=== PATIENT | female | born 1955 | race Caucasian/White ===

== ENCOUNTER 2019-04-05 19:35 | Observation (INO) ==
--- NOTE | 2019-04-05 20:12 | Emergency Department Note ---
Disposition Clinical Impression: Delirium Altered mental status Qualifiers: Altered mental status type: delirium Qualified Code(s): R41.0 - Disorientation, unspecified Disposition: Admitted As Inpatient Condition: Undetermined Referrals: NONE,PCP [Primary Care Provider] - Forms: ED Satisfaction Letter Time of Disposition: 22:16 Altered Mental Status HPI - General Chief Complaint: ED Altered Mental Status Stated Complaint: ams daughter thinks medication related Time Seen by Provider: 04/05/19 19:54 Source: patient, family Mode of arrival: wheelchair Limitations: no limitations Nursing Notes Reviewed: Yes Vital Signs Reviewed: Yes - History of Present Illness HPI Narrative: 64 year old female on multiple medications to the emergency department com plaining of alteration in mentation from family. Patient has been unable to care for self of multiple falls. No new medications which the patient is taking at least 6 Xanax per day and mixing with alcohol. The patient is speaking in flight of ideas and in circles. The patient is perseverating on subjects. Patient denies any atraumatic injury on a fall where she struck her left knee and left lower extremity 1 day ago. Patient is alert to person and place but is able able to really provide any history based on is currently occurring given the inability to give a straight answer. - Related Data Home Medications Medication Instructions Recorded Confirmed Ambien 10/29/17 Lopressor 10/29/17 Prozac 10/29/17 Previous Rx's Medication Instructions Recorded RX: Diclofenac Sodium [Voltaren] 50 mg PO BID #30 tablet. 10/29/17 Allergies Allergy/AdvReac Type Severity Reaction Status Date / Time codeine Allergy Rash Verified 10/29/17 15:09 All systems ED: reviewed and negative except as stated. Constitutional: Denies: fever, chills, weakness ENT ED: Denies: dysphagia Cardiovascular: Denies: chest pain Respiratory: Denies: dyspnea Gastrointestinal: Denies: abdominal pain Genitourinary: Denies: urgency, dysuria Musculoskeletal: Denies: back pain Integumentary: Denies: rash Neurological: Reports: confusion. Denies: headache Psychiatric: Denies: anxiety Past Medical History - Past Medical History Attestation: Yes The following information was validated with the patient. Source: patient, old records reviewed, obtained from family Medical history: Reports: hypertension, other Surgical history: Reports: non-contributory Psychiatric history: Reports: anxiety, depression - Social History Smoking Status: Current every day smoker Smokeless Tobacco Status: No Alcohol use: Reports: heavy, recent Drug use: Reports: none Physical Exam - General Limitations: altered mental status General appearance: alert, in no apparent distress - Head Head exam: atraumatic, normocephalic, normal inspection - Eye Eye exam: Present: normal appearance, PERRL, EOMI - ENT ENT exam: normal exam, normal oropharynx, mucous membranes moist - Neck Neck exam: Present: normal inspection, full ROM, trachea midline - Chest Chest inspection: Present: normal inspection, symmetric chest wall rise - Respiratory Respiratory exam: Present: normal lung sounds bilaterally - Cardiovascular Cardiovascular exam: Present: normal rhythm, tachycardia, normal heart sounds - Abdominal Exam Abdominal exam: Present: soft, Non-Tender. Absent: tenderness, distention, guarding, rebound, rigidity - Extremities Exam Extremities exam: Present: normal inspection, full ROM, normal capillary refill. Absent: tenderness, pedal edema - Neurological Exam Neurological exam: Present: alert - Expanded Neurological Exam Patient oriented to: Present: person, place Speech: Present: fluid speech Coma Scale Eye Opening: Spontaneous Coma Scale Motor Response: Obeys Commands Coma Scale Verbal Response: Confused Coma Scale Total: 14 - Psychiatric Psychiatric exam: Present: manic - Skin Skin exam: Present: warm, dry, intact, normal color Course - Reevaluation(s) Reevaluation #1: Daughter states she has taken 25 tablets of xanax in 3 days. Time: 20:24 Vital Signs Temperature 97.9 F 04/05/19 19:44 Pulse Rate 122 04/05/19 19:44 Respiratory Rate 16 04/05/19 19:44 Blood Pressure 138/84 04/05/19 19:44 O2 Sat by Pulse Oximetry 90 04/05/19 19:44 Temperature 97.9 F 04/05/19 19:44 Pulse Rate 122 04/05/19 19:44 Respiratory Rate 16 04/05/19 19:44 Blood Pressure 138/84 04/05/19 19:44 O2 Sat by Pulse Oximetry 90 04/05/19 19:44 Oxygen Delivery Oxygen Delivery Room Air Altered Mental Status - MDM Narrative Medical decision making narrative: Patient's workup in the emergency department demonstrates no acute process to account for patient's symptoms. Given the patient's extensive quantity of benzodiazepines that the patient is received a feel as though the patient's symptoms are likely polypharmacy. Patient is on Ambien, trachea alcohol and taking Xanax. The patient is lucid and answering questions but again is very hard-pressed to give history answer. The patient will be admitted to the hospital at this time for further workup and observation. Family made aware and agrees to plan. No further questions or concerns noted. Accepted by Dr. San. - Lab Data Lab results reviewed: Yes I reviewed the patient's lab results. Result diagrams: 04/05/19 20:25 04/05/19 20:25 Lab Results 04/05/19 04/05/19 04/05/19 Range/Units 20:25 20:25 20:25 WBC 8.6 (4.3-11.1) K/mcL RBC 6.03 H (3.82-4.97) M/mcL Hgb 17.7 H (11.5-15.4) g/dL Hct 52.8 H (35.3-44.9) % MCV 87.6 (83.0-100.0) fL MCH 29.4 (28.0-33.3) pg MCHC 33.5 (31.6-35.5) g/dL RDW 16.3 H (11.5-14.5) % Plt Count 384 (140-400) K/mcL MPV 9.6 (9.4-12.4) fL Immature Gran % 0.5 (0-4) % Seg Neutrophils % 61.5 % Lymphocytes % 26.8 % Monocytes % 9.9 % Eosinophils % 0.7 % Basophils % 0.6 % Neutrophils # 5.3 (1.6-8.9) K/mcL Lymphocytes # 2.3 (0.6-4.6) K/mcL Monocytes # 0.9 (0.0-1.3) K/mcL Eosinophils # 0.1 (0.0-0.6) K/mcL Basophils # 0.1 (0.0-0.2) K/mcL PT 11.3 (9.4-12.1) Seconds INR 1.0 APTT 37.7 H (26.0-36.0) Seconds Sodium 140 (136-145) mEq/L Potassium 3.3 L (3.5-5.1) mEq/L Chloride 101 (98-107) mEq/L Carbon Dioxide 30 H (23-29) mEq/L BUN 11 (8-23) mg/dL Creatinine 0.70 (0.60-1.20) mg/dL Est GFR ( Amer) > 60 (> 60) Est GFR (Non-Af Amer) > 60 (> 60) BUN/Creatinine Ratio 16 (6-26) Glucose 105 (70-105) mg/dL Calculated Osmolality 290 (280-300) Calcium 9.9 (8.6-10.3) mg/dL Total Bilirubin 0.4 (0.3-1.0) mg/dL Direct Bilirubin 0.2 (0.0-0.2) mg/dL Indirect Bilirubin 0.2 (0.0-1.2) mg/dL AST 14 (13-39) Units/L ALT 8 (7-52) Units/L Alkaline Phosphatase 84 (34-104) Units/L Ammonia (16-53) mcmol/L Troponin I < 0.03 (< 0.04) ng/mL Serum Total Protein 6.8 (6.4-8.9) g/dL Albumin 4.6 (3.5-5.7) g/dL Globulin 2.2 L (2.4-3.5) g/dL Albumin/Globulin Ratio 2.1 (1.1-2.2) Lipase 31 (11-82) Units/L Urine Color (Yellow) Urine Clarity (Clear) Urine pH (5.0-8.0) pH Units Ur Specific [place] (1.010-1.025) Urine Protein (Neg-Trace) mg/dL Urine Glucose (UA) (Normal) mg/dL Urine Ketones (Negative) mg/dL Urine Blood (Negative) Urine Nitrite (Negative) Urine Bilirubin (Negative) Urine Urobilinogen (Normal) mg/dL Ur Leukocyte Esterase (Negative) Ur Culture Indicated? (NO) Salicylates < 2.5 L (15.0-30.0) mg/dL Acetaminophen < 10 L (10-20) mcg/mL Ur Drug Screen Interp Ethyl Alcohol < 10 (Less than 10) mg/dL 04/05/19 04/05/19 04/05/19 Range/Units 20:25 21:38 21:38 WBC (4.3-11.1) K/mcL RBC (3.82-4.97) M/mcL Hgb (11.5-15.4) g/dL Hct (35.3-44.9) % MCV (83.0-100.0) fL MCH (28.0-33.3) pg MCHC (31.6-35.5) g/dL RDW (11.5-14.5) % Plt Count (140-400) K/mcL MPV (9.4-12.4) fL Immature Gran % (0-4) % Seg Neutrophils % % Lymphocytes % % Monocytes % % Eosinophils % % Basophils % % Neutrophils # (1.6-8.9) K/mcL Lymphocytes # (0.6-4.6) K/mcL Monocytes # (0.0-1.3) K/mcL Eosinophils # (0.0-0.6) K/mcL Basophils # (0.0-0.2) K/mcL PT (9.4-12.1) Seconds INR APTT (26.0-36.0) Seconds Sodium (136-145) mEq/L Potassium (3.5-5.1) mEq/L Chloride (98-107) mEq/L Carbon Dioxide (23-29) mEq/L BUN (8-23) mg/dL Creatinine (0.60-1.20) mg/dL Est GFR ( Amer) (> 60) Est GFR (Non-Af Amer) (> 60) BUN/Creatinine Ratio (6-26) Glucose (70-105) mg/dL Calculated Osmolality (280-300) Calcium (8.6-10.3) mg/dL Total Bilirubin (0.3-1.0) mg/dL Direct Bilirubin (0.0-0.2) mg/dL Indirect Bilirubin (0.0-1.2) mg/dL AST (13-39) Units/L ALT (7-52) Units/L Alkaline Phosphatase (34-104) Units/L Ammonia 34 (16-53) mcmol/L Troponin I (< 0.04) ng/mL Serum Total Protein (6.4-8.9) g/dL Albumin (3.5-5.7) g/dL Globulin (2.4-3.5) g/dL Albumin/Globulin Ratio (1.1-2.2) Lipase (11-82) Units/L Urine Color Yellow (Yellow) Urine Clarity Clear (Clear) Urine pH 5.5 (5.0-8.0) pH Units Ur Specific [place] 1.014 (1.010-1.025) Urine Protein Negative (Neg-Trace) mg/dL Urine Glucose (UA) Normal (Normal) mg/dL Urine Ketones Negative (Negative) mg/dL Urine Blood Negative (Negative) Urine Nitrite Negative (Negative) Urine Bilirubin Small H (Negative) Urine Urobilinogen Normal (Normal) mg/dL Ur Leukocyte Esterase Negative (Negative) Ur Culture Indicated? NO (NO) Salicylates (15.0-30.0) mg/dL Acetaminophen (10-20) mcg/mL Ur Drug Screen Interp See Below Ethyl Alcohol (Less than 10) mg/dL - Radiology Data Radiology results reviewed: Yes I reviewed the patient's radiology results. Chest X-Ray 04/05/19 20:06 IMPRESSION: No acute cardiopulmonary findings. Hyperinflated lungs suggest obstructive small airways disease such as asthma or COPD. D/ / Vamshi Almeida / Vamshi Almeida Interpreting Provider: Vamshi Almeida Head CT 04/05/19 20:06 IMPRESSION: No acute intracranial abnormality. D/ / Kevin Lock MD / Kevin Lock MD Interpreting Provider: Kevin Lock MD - EKG Data EKG attestation: Yes I reviewed and interpreted this EKG. EKG results narrative: Heart rate 102 beats for minute. Sinus tachycardia. No ST elevation or ST depression noted. Inverted T waves noted in V1, V2, V3, V4. No other acute changes noted. Large amount of artifact on EKG. TPA Checklist - LKW: 3-4.5 hrs Add. Warnings/Precautions Patient/family understanding: The patient/family members have been counseled and understood the risk, benefit, and alternatives of treatment.
--- NOTE | 2019-04-05 20:17 | Emergency Department Note ---
Disposition Clinical Impression: Delirium Altered mental status Qualifiers: Altered mental status type: delirium Qualified Code(s): R41.0 - Disorientation, unspecified Disposition: Admitted As Inpatient Condition: Undetermined Referrals: NONE,PCP [Primary Care Provider] - Forms: ED Satisfaction Letter Time of Disposition: 22:03 General Adult HPI - General Chief complaint: ED Altered Mental Status Stated complaint: ams daughter thinks medication related Time Seen by Provider: 04/05/19 19:54 Source: patient, family Mode of arrival: wheelchair Limitations: altered mental status - History of Present Illness Pain Scale: 0 - Related Data Home Medications Medication Instructions Recorded Confirmed Ambien 10/29/17 Lopressor 10/29/17 Prozac 10/29/17 Previous Rx's Medication Instructions Recorded Diclofenac Sodium [Voltaren] 50 mg PO BID #30 tablet. 10/29/17 Allergies Allergy/AdvReac Type Severity Reaction Status Date / Time codeine Allergy Rash Verified 10/29/17 15:09 Constitutional: Denies: fever, chills, weakness ENT ED: Denies: dysphagia Cardiovascular: Denies: chest pain Respiratory: Denies: dyspnea Gastrointestinal: Denies: abdominal pain Genitourinary: Denies: urgency, dysuria Musculoskeletal: Denies: back pain Integumentary: Denies: rash Neurological: Reports: confusion. Denies: headache Psychiatric: Denies: anxiety Past Medical History - Past Medical History Medical history: Reports: hypertension, other Surgical history: Reports: non-contributory Psychiatric history: Reports: anxiety, depression - Social History Smoking Status: Current every day smoker Smokeless Tobacco Status: No Alcohol use: Reports: heavy, recent Drug use: Reports: none Physical Exam - General Limitations: altered mental status General appearance: alert, in no apparent distress Course Vital Signs Temperature 97.9 F 04/05/19 19:44 Pulse Rate 122 04/05/19 19:44 Respiratory Rate 16 04/05/19 19:44 Blood Pressure 138/84 04/05/19 19:44 O2 Sat by Pulse Oximetry 90 04/05/19 19:44 Temperature 97.9 F 04/05/19 19:44 Pulse Rate 122 04/05/19 19:44 Respiratory Rate 16 04/05/19 19:44 Blood Pressure 138/84 04/05/19 19:44 O2 Sat by Pulse Oximetry 90 04/05/19 19:44 Oxygen Delivery Oxygen Delivery Room Air Medical Decision Making - Lab Data Result diagrams: 04/05/19 20:25 04/05/19 20:25 Lab Results 04/05/19 04/05/19 04/05/19 Range/Units 20:25 20:25 20:25 WBC 8.6 (4.3-11.1) K/mcL RBC 6.03 H (3.82-4.97) M/mcL Hgb 17.7 H (11.5-15.4) g/dL Hct 52.8 H (35.3-44.9) % MCV 87.6 (83.0-100.0) fL MCH 29.4 (28.0-33.3) pg MCHC 33.5 (31.6-35.5) g/dL RDW 16.3 H (11.5-14.5) % Plt Count 384 (140-400) K/mcL MPV 9.6 (9.4-12.4) fL Immature Gran % 0.5 (0-4) % Seg Neutrophils % 61.5 % Lymphocytes % 26.8 % Monocytes % 9.9 % Eosinophils % 0.7 % Basophils % 0.6 % Neutrophils # 5.3 (1.6-8.9) K/mcL Lymphocytes # 2.3 (0.6-4.6) K/mcL Monocytes # 0.9 (0.0-1.3) K/mcL Eosinophils # 0.1 (0.0-0.6) K/mcL Basophils # 0.1 (0.0-0.2) K/mcL PT 11.3 (9.4-12.1) Seconds INR 1.0 APTT 37.7 H (26.0-36.0) Seconds Sodium 140 (136-145) mEq/L Potassium 3.3 L (3.5-5.1) mEq/L Chloride 101 (98-107) mEq/L Carbon Dioxide 30 H (23-29) mEq/L BUN 11 (8-23) mg/dL Creatinine 0.70 (0.60-1.20) mg/dL Est GFR ( Amer) > 60 (> 60) Est GFR (Non-Af Amer) > 60 (> 60) BUN/Creatinine Ratio 16 (6-26) Glucose 105 (70-105) mg/dL Calculated Osmolality 290 (280-300) Calcium 9.9 (8.6-10.3) mg/dL Total Bilirubin 0.4 (0.3-1.0) mg/dL Direct Bilirubin 0.2 (0.0-0.2) mg/dL Indirect Bilirubin 0.2 (0.0-1.2) mg/dL AST 14 (13-39) Units/L ALT 8 (7-52) Units/L Alkaline Phosphatase 84 (34-104) Units/L Ammonia (16-53) mcmol/L Troponin I < 0.03 (< 0.04) ng/mL Serum Total Protein 6.8 (6.4-8.9) g/dL Albumin 4.6 (3.5-5.7) g/dL Globulin 2.2 L (2.4-3.5) g/dL Albumin/Globulin Ratio 2.1 (1.1-2.2) Lipase 31 (11-82) Units/L Urine Color (Yellow) Urine Clarity (Clear) Urine pH (5.0-8.0) pH Units Ur Specific [place] (1.010-1.025) Urine Protein (Neg-Trace) mg/dL Urine Glucose (UA) (Normal) mg/dL Urine Ketones (Negative) mg/dL Urine Blood (Negative) Urine Nitrite (Negative) Urine Bilirubin (Negative) Urine Urobilinogen (Normal) mg/dL Ur Leukocyte Esterase (Negative) Ur Culture Indicated? (NO) Salicylates < 2.5 L (15.0-30.0) mg/dL Acetaminophen < 10 L (10-20) mcg/mL Ur Drug Screen Interp Ethyl Alcohol < 10 (Less than 10) mg/dL 04/05/19 04/05/19 04/05/19 Range/Units 20:25 21:38 21:38 WBC (4.3-11.1) K/mcL RBC (3.82-4.97) M/mcL Hgb (11.5-15.4) g/dL Hct (35.3-44.9) % MCV (83.0-100.0) fL MCH (28.0-33.3) pg MCHC (31.6-35.5) g/dL RDW (11.5-14.5) % Plt Count (140-400) K/mcL MPV (9.4-12.4) fL Immature Gran % (0-4) % Seg Neutrophils % % Lymphocytes % % Monocytes % % Eosinophils % % Basophils % % Neutrophils # (1.6-8.9) K/mcL Lymphocytes # (0.6-4.6) K/mcL Monocytes # (0.0-1.3) K/mcL Eosinophils # (0.0-0.6) K/mcL Basophils # (0.0-0.2) K/mcL PT (9.4-12.1) Seconds INR APTT (26.0-36.0) Seconds Sodium (136-145) mEq/L Potassium (3.5-5.1) mEq/L Chloride (98-107) mEq/L Carbon Dioxide (23-29) mEq/L BUN (8-23) mg/dL Creatinine (0.60-1.20) mg/dL Est GFR ( Amer) (> 60) Est GFR (Non-Af Amer) (> 60) BUN/Creatinine Ratio (6-26) Glucose (70-105) mg/dL Calculated Osmolality (280-300) Calcium (8.6-10.3) mg/dL Total Bilirubin (0.3-1.0) mg/dL Direct Bilirubin (0.0-0.2) mg/dL Indirect Bilirubin (0.0-1.2) mg/dL AST (13-39) Units/L ALT (7-52) Units/L Alkaline Phosphatase (34-104) Units/L Ammonia 34 (16-53) mcmol/L Troponin I (< 0.04) ng/mL Serum Total Protein (6.4-8.9) g/dL Albumin (3.5-5.7) g/dL Globulin (2.4-3.5) g/dL Albumin/Globulin Ratio (1.1-2.2) Lipase (11-82) Units/L Urine Color Yellow (Yellow) Urine Clarity Clear (Clear) Urine pH 5.5 (5.0-8.0) pH Units Ur Specific [place] 1.014 (1.010-1.025) Urine Protein Negative (Neg-Trace) mg/dL Urine Glucose (UA) Normal (Normal) mg/dL Urine Ketones Negative (Negative) mg/dL Urine Blood Negative (Negative) Urine Nitrite Negative (Negative) Urine Bilirubin Small H (Negative) Urine Urobilinogen Normal (Normal) mg/dL Ur Leukocyte Esterase Negative (Negative) Ur Culture Indicated? NO (NO) Salicylates (15.0-30.0) mg/dL Acetaminophen (10-20) mcg/mL Ur Drug Screen Interp See Below Ethyl Alcohol (Less than 10) mg/dL Attestation Statement - Attestation Attestation: I examined this patient and my medical decision-making was reviewed with the Resident Physician. I agree with the documented findings, disposition and treatment plan as described except to the extent set forth below. 64-year-old female presented to the emergency room for mental status. Patient is accompanied by family members including her daughter who states over the past 2 weeks patient has had increased confusion. She is not taking care of the house. She is not cleaning. Patient is been perseverating. Her stories are not making sense. She has pressured speech at times. She takes Ambien to help her sleep and they feel that she is mixing that with too much of her Xanax and/or Ativan medication. Her doctor writes with these medications. The family states she has been taking 78 tablets of her benzodiazepine a day and mixing it with alcohol. They are concerned that this is causing her to be more confused than normal. She has no underlying history of dementia. She has no underlying history of Alzheimer's. No history of CVAs. She has no history of coronary disease. Patient has no psychiatric diseases. At this time we need to rule out any intracranial abnormality as the cause of her change in behavior and mental status versus it being related to polysubstance issues mixed with alcohol. Patient will need to be admitted. This is her second visit in the ER in the past 24 hours. Patient was here last night for a fall that was reported from family. She had been sent home and returns this evening for increasing confusion. plan to check labs, CT, CXR, Urine.
[2019-04-05 20:39] LABS: Basophils # 0.1 K/mcL (0.0-0.2); Basophils % 0.6 %; Eosinophils # 0.1 K/mcL (0.0-0.6); Eosinophils % 0.7 %; Hematocrit 52.8 % (35.3-44.9); Hemoglobin 17.7 g/dL (11.5-15.4); Immature Granulocytes % 0.5 % (0-4); Lymphocytes # 2.3 K/mcL (0.6-4.6); Lymphocytes % 26.8 %; Mean Corpuscular HGB Conc 33.5 g/dL (31.6-35.5); Mean Corpuscular Hemoglobin 29.4 pg (28.0-33.3); Mean Corpuscular Volume 87.6 fL (83.0-100.0); Mean Platelet Volume 9.6 fL (9.4-12.4); Monocytes # 0.9 K/mcL (0.0-1.3); Monocytes % 9.9 %; Neutrophils # 5.3 K/mcL (1.6-8.9); Platelet Count 384 K/mcL (140-400); Red Blood Count 6.03 M/mcL (3.82-4.97); Red Cell Distribution Width 16.3 % (11.5-14.5); Segmented Neutrophils % 61.5 %
[2019-04-05 20:47] LABS: Prothrombin Time 11.3 Seconds (9.4-12.1)
[2019-04-05 20:49] LABS: Activated Partial Thrombo Time 37.7 Seconds (26.0-36.0)
[2019-04-05 21:02] LABS: Acetaminophen < 10 mcg/mL (10-20); Alanine Aminotransferase 8 Units/L (7-52); Albumin 4.6 g/dL (3.5-5.7); Albumin/Globulin Ratio 2.1 (1.1-2.2); Alkaline Phosphatase 84 Units/L (34-104); Aspartate Amino Transferase 14 Units/L (13-39); BUN/Creatinine Ratio 16 (6-26); Bilirubin,Direct 0.2 mg/dL (0.0-0.2); Bilirubin,Indirect 0.2 mg/dL (0.0-1.2); Bilirubin,Total 0.4 mg/dL (0.3-1.0); Blood Urea Nitrogen 11 mg/dL (8-23); Calcium 9.9 mg/dL (8.6-10.3); Carbon Dioxide 30 mEq/L (23-29); Chloride 101 mEq/L (98-107); Ethanol < 10 mg/dL (Less than 10); Globulin 2.2 g/dL (2.4-3.5); Glucose 105 mg/dL (70-105); Lipase 31 Units/L (11-82); Osmolality,Calculated 290 (280-300); Potassium 3.3 mEq/L (3.5-5.1); Salicylate < 2.5 mg/dL (15.0-30.0); Sodium 140 mEq/L (136-145); Total Protein 6.8 g/dL (6.4-8.9); Troponin I < 0.03 ng/mL (< 0.04); eGFR For Non-African Americans > 60 (> 60)
[2019-04-05 21:52] LABS: Bilirubin,Urine Small (Negative); Blood,Urine Negative (Negative); Clarity,Urine Clear (Clear); Color,Urine Yellow (Yellow); Glucose,Urine (UA) Normal (Normal); Ketones,Urine Negative (Negative); Leukocyte Esterase,Urine Negative (Negative); Nitrite,Urine Negative (Negative); PH,Urine 5.5 pH Units (5.0-8.0); Protein,Urine Negative (Neg-Trace); Specific Gravity,Urine 1.014 (1.010-1.025); Urobilinogen,Urine Normal (Normal)
[2019-04-05] MEDS ORDERED: 0.9 % Sodium Chloride 1,000 ML IVC ONE (22:02)
[2019-04-05] MEDS ORDERED: Naloxone 0.4 MG/ML INJ IVP PRN (22:35)
[2019-04-05 22:37] LABS: Amphetamine Screen,Urine Negative ng/mL (Cutoff=1000); Barbiturate Screen,Urine Negative ng/mL (Cutoff=200); Benzodiazepines Screen,Urine Positive ng/mL (Cutoff=200); Cannabinoid Screen,Urine Negative ng/mL (Cutoff = 50); Cocaine Screen,Urine Negative ng/mL (Cutoff= 300); Opiate Screen,Urine Negative ng/mL (Cutoff=300); Phencyclidine Screen,Urine Negative ng/mL (Cutoff=25)
[2019-04-06 02:36] LABS: Hematocrit 51.6 % (35.3-44.9); Hemoglobin 16.8 g/dL (11.5-15.4); Mean Corpuscular HGB Conc 32.6 g/dL (31.6-35.5); Mean Corpuscular Hemoglobin 29.4 pg (28.0-33.3); Mean Corpuscular Volume 90.2 fL (83.0-100.0); Platelet Count 335 K/mcL (140-400); Red Blood Count 5.72 M/mcL (3.82-4.97); Red Cell Distribution Width 17.1 % (11.5-14.5)
[2019-04-06 02:44] LABS: BUN/Creatinine Ratio 14 (6-26); Blood Urea Nitrogen 9 mg/dL (8-23); Calcium 9.1 mg/dL (8.6-10.3); Carbon Dioxide 29 mEq/L (23-29); Chloride 105 mEq/L (98-107); Glucose 79 mg/dL (70-105); Magnesium 2.2 mg/dL (1.6-2.6); Osmolality,Calculated 294 (280-300); Phosphorous 2.9 mg/dL (2.7-4.5); Potassium 3.3 mEq/L (3.5-5.1); Sodium 143 mEq/L (136-145); eGFR For Non-African Americans > 60 (> 60)
--- NOTE | 2019-04-06 02:52 | Internal Med History&Physical ---
Date of Encounter: 04/06/19 Time of Encounter: 01:00 Internal Medicine - H&P: HPI Chief complaint: AMS History of present illness: Ms. Franks is a 64 year old female with a past medical history of hypertension who was brought into the ED by family members due to concern for altered mental status. Patient has been unable to care for self and has had multiple falls. According to family and patient, the patient is taking at least 6 Xanax per day and mixing with alcohol. The patient is speaking in flight of ideas and in circles. On my assessment the patient was alert oriented 3 however was not able to provide me a concise history and would ramble on after each of my questions. Patient's daughter was at bedside who stated that the patient was having increased confusion and changes in behavior over the past 2 weeks. She does endorse depression for which she is receiving treatment on an outpatient basis. Client denies any history of inpatient treatment or suicide attempts. She did endorse tought of suicide occuring one evening severaldays prior stating that she had taken more of her Zolpidem that evening. Claims she takes Prozac, Neurontin, and Xanax at home. Home dose of Xanax is 4mg a day. Suspect she is taking more than this and drinking alcohol on top of it. Current delirium likely related to Benzo use. Her ability to give a good history is very limited at this point based on her level of confusion. She otherwise has no other significant metabolic derangements. Denies any fever, chills, nausea, vomiting, abdominal pain, chest pain, shortness of breath, cough or diarrhea. Past Med Surg Social Fam HX - Past Medical History Medical history: hypertension Psychiatric history: anxiety, depression - Past Surgical History Surgical History: knee replacement Additional surgical history: bowel resection - Social History Smoking Status: Current every day smoker Smokeless Tobacco Status: No Alcohol use: occasionally, recent Drug use: none Internal Medicine - H&P: Meds ALPRAZolam [Xanax 1 MG Tablet] 1 mg PO QID 04/05/19 [History] DiphenhydraMINE [Benadryl] 50 mg PO HS PRN 04/05/19 [History] Gabapentin [Neurontin] 300 mg PO TID 04/05/19 [History] Zolpidem [Ambien] 10 mg PO HS 04/05/19 [History] Cyclobenzaprine HCl 10 mg PO TID PRN 04/06/19 [History] Diclofenac Sodium 4 gm TP QID PRN 04/06/19 [History] FLUoxetine HCl [Prozac] 20 mg PO BID 04/06/19 [History] Fluticasone/Vilanterol [Breo Ellipta 200-25 Mcg INH] 1 puff IH DAILY 04/06/19 [History] Losartan/Hydrochlorothiazide [Losartan-Hctz 50-12.5 mg Tab] 1 tab PO DAILY 04/06/19 [History] Meloxicam 15 mg PO DAILY 04/06/19 [History] Omeprazole [PriLOSEC] 20 mg PO DAILY 04/06/19 [History] Potassium Chloride [K-Tab ER] 10 meq PO DAILY 04/06/19 [History] Tramadol HCl [Ultram] 50 - 100 mg PO Q8H PRN 04/06/19 [History] Allergy/AdvReac Type Severity Reaction Status Date / Time codeine AdvReac Gastrointestinal Verified 04/06/19 16:50 Upset morphine AdvReac Gastrointestinal Verified 04/06/19 16:50 Upset All Systems PM: A 10-system review of systems was performed and is negative for pertinent findings except as documented above in the HPI. - Constitutional Constitutional: no chills, no fever(s), no night sweats - EENT Eyes: no change in vision, no discharge, no pain, no photophobia Ears: no ear discharge, no ear pain, no tinnitus Nose, mouth and throat: no dysphagia, no nasal discharge, no neck pain, no sore throat - Cardiovascular Cardiovascular ROS IM: no chest pain, no diaphoresis, no dyspnea, no lightheadedness, no palpitations, no syncope - Respiratory Respiratory: no cough, no dyspnea, no wheezing, no excessive phlegm production - Gastrointestinal Gastrointestinal: no abdominal pain, no diarrhea, no hematemesis, no hematochez ia, no melena, no nausea, no vomiting - Genitourinary Genitourinary: no change in urinary stream, no dysuria, no flank pain, no hematuria - Musculoskeletal Musculoskeletal ROS IM: no numbness, no tingling - Integumentary Integumentary IM: no rash, no unusual bruising - Neurological Neurological ROS: no confusion, no convulsions, no focal weakness, no numbness, no tingling, no tremor(s) - Hematologic/Lymphatic Hematologic/Lymphatic: no easy bruising - Constitutional Vitals: Temp Pulse Resp BP Pulse Ox 98.4 F 93 17 148/95 97 04/06/19 00:06 04/06/19 00:06 04/06/19 00:06 04/06/19 00:06 04/06/19 00:06 Exam: General: Alert and oriented 3 Skin:Normal color, no rash, no lesions. HEENT:EOM, pupils equal, round and reactive. Cardiovascular:Normal S1 & S2, no rubs, murmurs or gallops. No JVD. Pulse regular. Lungs:Normal breath sounds, no wheezes or crackles. Abdomen:Soft, non-tender, no rigidity. Extremities:No deformity, no edema or tenderness, no joint swelling or clubbing. Neurological:Normal cognition; cranial nerves II through XII intact; no focal deficits; no pronator drift. Full strength 5 out of 5 in the upper and lower extremities Mental status: Patient does endorse thoughts of harming herself. No reports of suicidal attempt. Thought process tangential. Pulses:Carotid and radial pulses normal +2. Rest of the physical exam is non contributory Internal Med - H&P Results - Labs CBC & Chem 7: 04/06/19 01:31 04/06/19 01:31 Labs: Short CBC 04/05/19 04/06/19 Range/Units 20:25 01:31 WBC 8.6 8.5 (4.3-11.1) K/mcL Hgb 17.7 H 16.8 H (11.5-15.4) g/dL Hct 52.8 H 51.6 H (35.3-44.9) % Plt Count 384 335 (140-400) K/mcL Neutrophils # 5.3 (1.6-8.9) K/mcL BMP 04/05/19 04/06/19 20:25 01:31 Sodium 140 143 Potassium 3.3 L 3.3 L Chloride 101 105 Carbon Dioxide 30 H 29 BUN 11 9 Creatinine 0.70 0.63 Glucose 105 79 Calcium 9.9 9.1 Cardiac Enzymes 04/05/19 Range/Units 20:25 Troponin I < 0.03 (< 0.04) ng/mL Liver Function 04/05/19 Range/Units 20:25 Total Bilirubin 0.4 (0.3-1.0) mg/dL Direct Bilirubin 0.2 (0.0-0.2) mg/dL AST 14 (13-39) Units/L ALT 8 (7-52) Units/L Alkaline Phosphatase 84 (34-104) Units/L Albumin 4.6 (3.5-5.7) g/dL Urine 04/05/19 Range/Units 21:38 Urine Color Yellow (Yellow) Urine Clarity Clear (Clear) Urine pH 5.5 (5.0-8.0) pH Units Ur Specific [place] 1.014 (1.010-1.025) Urine Protein Negative (Neg-Trace) mg/dL Urine Glucose (UA) Normal (Normal) mg/dL - Impressions ITS Impressions Chest X-Ray 04/05/19 20:06 IMPRESSION: No acute cardiopulmonary findings. Hyperinflated lungs suggest obstructive small airways disease such as asthma or COPD. D/ / Vamshi Almeida / Vamshi Almeida Interpreting Provider: Vamshi Almeida Head CT 04/05/19 20:06 IMPRESSION: No acute intracranial abnormality. D/ / Kevin Lock MD / Kevin Lock MD Interpreting Provider: Kevin Lock MD - Assessment and Plan (1) Altered mental status Current Visit: Yes Status: Acute Assessment and plan: Altered mental status exhibited with tangential thought and perseveration. Patient endorses several stressors in her life and did expressed suicidal ideation stating that she had taken 3 Ambien tablets at some point. CT scan of the head was unremarkable. Symptoms likely secondary to medication toxicity and alcohol abuse. Likely underlying depression. -Supportive fluids. -Hold benzodiazepine, gabapentin and Ambien -One-to-one sitter due to expression of suicidal ideation and possible attempt -Psychiatry consult Qualifiers: Altered mental status type: delirium Qualified Code(s): R41.0 - Disorientation, unspecified (2) Alcohol use Current Visit: Yes Status: Acute Assessment and plan: Patient reports drinking half a bottle of Justo daily. -[facility] protocol -Banana bag -Replete electrolytes as needed (3) Hypertension Current Visit: Yes Status: Acute Assessment and plan: Blood pressure stable. Monitor Qualifiers: Qualified Code(s): I10 - Essential (primary) hypertension (4) DVT prophylaxis Current Visit: Yes Status: Acute Assessment and plan: Subcutaneous heparin - Time Spent With Patient Total time spent is greater than 50% in coordination of care (as documented) at patient's floor/unit and/or counseling patient:
[2019-04-06] MEDS: 0.9 % Sodium Chloride 1,000 ML IVC SCH ×2 (06:17→16:06)
[2019-04-06] MEDS: *HR* Heparin 5,000 UNIT/ML VIAL SQ SCH ×3 (06:18→21:02)
--- NOTE | 2019-04-06 11:46 | Consult Note ---
Date of Encounter: 04/06/19 Time of Encounter: 11:38 Assessment & Recommendation (1) Altered mental status Current visit: Yes Status: Acute Assessment & Recommendation: Suspect current presentation is related to benzo and alcohol misuse. Client is currently delirious. Unknown how much Xanax client was taking or when her last dose was but given potential for withdrawal would schedule her on a benzo taper at this time. Can start Ativan 2mg every 4-6hrs and slowly taper her down. Would also recommend a low dose antipsychotic to help keep her oriented. Can use Haldol 2-5mg every 4-6hrs as needed. If using Haldol IV would keep her on telemetry. Client is denying SI at this time and has no history of being suicidal. However, given her level of confusion would maintain the sitter for the time being. Once she starts to clear the sitter likely won't be necessary. Will follow along. Qualifiers: Altered mental status type: delirium Qualified Code(s): R41.0 - Disorientation, unspecified History of Present Illness Requesting Physician: Jason Gonzalez Reason for consult: suicidal ideation History of present illness: Ms. Franks is a 64 year old female who was admitted secondary to recent falls and confusion. Reportedly endorsed SI at one point and psychiatry was consulted. On eval today client is delirious. She goes in and out of being oriented. She denies SI, intent, or plan but given her level of confusion it is hard to say what is accurate. Client endorses depression that is treated on an outpatient basis. Client denies any history of inpatient treatment or suicide attempts. Claims she takes Prozac, Neurontin, and Xanax at home. Home dose of Xanax is 4mg a day. Suspect she is taking more than this and drinking alcohol on top of it. Current delirium likely related to Benzo use. Her ability to give a good history is very limited at this point based on her level of confusion. CC: Jason Gonzalez Past Med Surg Social Fam HX - Past Medical History Medical history: hypertension - Past Psychiatric History Psychiatric history: Reports: anxiety, depression Family psychiatric history: Unknown Family History of Suicide: Unknown - Past Surgical History Surgical History: knee replacement - Social History Smoking Status: Current every day smoker Smokeless Tobacco Status: No Alcohol use: occasionally, recent Drug use: none Medications & Allergies ALPRAZolam [Xanax 1 MG Tablet] 1 mg PO QID 04/05/19 [History] DiphenhydraMINE [Benadryl] 50 mg PO HS PRN 04/05/19 [History] Gabapentin [Neurontin] 300 mg PO TID 04/05/19 [History] Zolpidem [Ambien] 10 mg PO HS 04/05/19 [History] Allergy/AdvReac Type Severity Reaction Status Date / Time codeine Allergy Rash Verified 10/29/17 15:09 Review of Systems Constitutional: Denies: fever, chills, weakness, weight change Eyes: Denies: eye pain, vision change Ears, Nose, Throat: Denies: ear pain, throat pain, dental pain, hearing loss, congestion Cardiovascular: Denies: chest pain, palpitations, dyspnea on exertion Respiratory: Denies: cough, dyspnea, wheezes Gastrointestinal: Denies: abdominal pain, nausea, vomiting, diarrhea, constipation Genitourinary female: Denies: urgency, dysuria, frequency, abnormal menses, dyspareunia Musculoskeletal: Denies: joint swelling, joint pain Integumentary: Denies: rash, lesions, pruritus Neurological: Denies: headache, weakness, numbness, memory loss Endocrine: Denies: fatigue, heat or cold intolerance Hematologic/Lymphatic: Denies: easy bruising, lymphadenopathy Allergic/Immunologic: Denies: urticaria, itchy eyes Psychiatry Exam - Constitutional Vitals: Temp Pulse Resp BP Pulse Ox 98.8 F 87 16 147/84 94 04/06/19 10:08 04/06/19 10:08 04/06/19 10:08 04/06/19 10:08 04/06/19 10:08 General appearance: disheveled - Musculoskeletal Gait: other Station: relaxed Strength & Tone: normal for patient - Psychiatric Patient Orientation: Yes Person, No Time, No Place, No Circumstance Level of alertness: Alert Behavior: tearful Psychomotor activity: Normal Eye Contact: Maintains Eye Contact Mood Description: Depressed Affect description: tearful Speech Volume: Normal Speech pattern: normal rate, normal rhythm, normal tone, fluent, spontaneous Language & Vocabulary: consistent with education Thought Process: Tangential, Thought Blocking Thought Content: No Suicidal ideation, No Homicidal ideation, No Overt delusions Perceptual Disturbances: Yes Auditory hallucinations Attention Span Ability: Unable to Focus, Unable to Sustain Attention Memory Description: Immediate Intact, Recent Impaired, Remote Intact Patient Reliability: Not Reliable Historian Fund of knowledge: Yes abstraction ability Intelligence Estimate: Average Judgment: Limited Insight: Minimal Results - Drug Levels and Toxicology Drug Levels and Toxicology: Drug Levels and Toxicity 04/05/19 04/05/19 20:25 21:38 Urine Opiates Screen Negative Acetaminophen < 10 L Ur Barbiturates Screen Negative Ur Phencyclidine Scrn Negative Ur Amphetamines Screen Negative U Benzodiazepines Scrn Positive H Urine Cocaine Screen Negative U Marijuana (THC) Screen Negative Ethyl Alcohol < 10 - Labs Labs: Laboratory Last Values WBC 8.5 K/mcL (4.3-11.1) 04/06/19 01:31 RBC 5.72 M/mcL (3.82-4.97) H 04/06/19 01:31 Hgb 16.8 g/dL (11.5-15.4) H 04/06/19 01:31 Hct 51.6 % (35.3-44.9) H 04/06/19 01:31 MCV 90.2 fL (83.0-100.0) 04/06/19 01:31 MCH 29.4 pg (28.0-33.3) 04/06/19 01:31 MCHC 32.6 g/dL (31.6-35.5) 04/06/19 01:31 RDW 17.1 % (11.5-14.5) H 04/06/19 01:31 Plt Count 335 K/mcL (140-400) 04/06/19 01:31 MPV 10.0 fL (9.4-12.4) 04/06/19 01:31 Immature Gran % 0.5 % (0-4) 04/05/19 20:25 Seg Neutrophils % 61.5 % 04/05/19 20:25 26.8 % 04/05/19 20:25 9.9 % 04/05/19 20:25 0.7 % 04/05/19 20:25 0.6 % 04/05/19 20:25 5.3 K/mcL (1.6-8.9) 04/05/19 20:25 2.3 K/mcL (0.6-4.6) 04/05/19 20:25 0.9 K/mcL (0.0-1.3) 04/05/19 20:25 0.1 K/mcL (0.0-0.6) 04/05/19 20:25 0.1 K/mcL (0.0-0.2) 04/05/19 20:25 PT 11.3 Seconds (9.4-12.1) 04/05/19 20:25 INR 1.0 04/05/19 20:25 APTT 37.7 Seconds (26.0-36.0) H 04/05/19 20:25 Sodium 143 mEq/L (136-145) 04/06/19 01:31 Potassium 3.3 mEq/L (3.5-5.1) L 04/06/19 01:31 Chloride 105 mEq/L (98-107) 04/06/19 01:31 Carbon Dioxide 29 mEq/L (23-29) 04/06/19 01:31 BUN 9 mg/dL (8-23) 04/06/19 01:31 0.63 mg/dL (0.60-1.20) 04/06/19 01:31 Est GFR ( Amer) > 60 (> 60) 04/06/19 01:31 Est GFR (Non-Af Amer) > 60 (> 60) 04/06/19 01:31 14 (6-26) 04/06/19 01:31 Glucose 79 mg/dL (70-105) 04/06/19 01:31 294 (280-300) 04/06/19 01:31 Calcium 9.1 mg/dL (8.6-10.3) 04/06/19 01:31 Phosphorus 2.9 mg/dL (2.7-4.5) 04/06/19 01:31 Magnesium 2.2 mg/dL (1.6-2.6) 04/06/19 01:31 0.4 mg/dL (0.3-1.0) 04/05/19 20:25 0.2 mg/dL (0.0-0.2) 04/05/19 20:25 0.2 mg/dL (0.0-1.2) 04/05/19 20:25 AST 14 Units/L (13-39) 04/05/19 20:25 ALT 8 Units/L (7-52) 04/05/19 20:25 84 Units/L (34-104) 04/05/19 20:25 34 mcmol/L (16-53) 04/05/19 20:25 < 0.03 ng/mL (< 0.04) 04/05/19 20:25 6.8 g/dL (6.4-8.9) 04/05/19 20:25 4.6 g/dL (3.5-5.7) 04/05/19 20:25 2.2 g/dL (2.4-3.5) L 04/05/19 20:25 2.1 (1.1-2.2) 04/05/19 20:25 31 Units/L (11-82) 04/05/19 20:25 Yellow (Yellow) 04/05/19 21:38 Clear (Clear) 04/05/19 21:38 5.5 pH Units (5.0-8.0) 04/05/19 21:38 Ur Specific [place] 1.014 (1.010-1.025) 04/05/19 21:38 Negative mg/dL (Neg-Trace) 04/05/19 21:38 Normal mg/dL (Normal) 04/05/19 21:38 Negative mg/dL (Negative) 04/05/19 21:38 Negative (Negative) 04/05/19 21:38 Negative (Negative) 04/05/19 21:38 Small (Negative) H 04/05/19 21:38 Normal mg/dL (Normal) 04/05/19 21:38 Ur Leukocyte Esterase Negative (Negative) 04/05/19 21:38 Ur Culture Indicated? NO (NO) 04/05/19 21:38 Salicylates < 2.5 mg/dL (15.0-30.0) L 04/05/19 20:25 Negative ng/mL (Duulrb=730) 04/05/19 21:38 Acetaminophen < 10 mcg/mL (10-20) L 04/05/19 20:25 Ur Barbiturates Screen Negative ng/mL (Pxqlif=231) 04/05/19 21:38 Ur Phencyclidine Scrn Negative ng/mL (Cutoff=25) 04/05/19 21:38 Ur Amphetamines Screen Negative ng/mL (Mporko=3156) 04/05/19 21:38 U Benzodiazepines Scrn Positive ng/mL (Nebvfg=274) H 04/05/19 21:38 Negative ng/mL (Cutoff= 300) 04/05/19 21:38 U Marijuana (THC) Screen Negative ng/mL (Cutoff = 50) 04/05/19 21:38 Ur Drug Screen Interp See Below 04/05/19 21:38 Ethyl Alcohol < 10 mg/dL (Less than 10) 04/05/19 20:25 - Impressions Impressions Chest X-Ray 04/05/19 20:06 IMPRESSION: No acute cardiopulmonary findings. Hyperinflated lungs suggest obstructive small airways disease such as asthma or COPD. D/ / Vamshi Almeida / Vamshi Almeida Interpreting Provider: Vamshi Almeida Head CT 04/05/19 20:06 IMPRESSION: No acute intracranial abnormality. D/ / Kevin Lock MD / Kevin Lock MD Interpreting Provider: Kevin Lock MD Consult Discharge Plan - Plan Referrals: NONE,PCP [Primary Care Provider] -
--- NOTE | 2019-04-06 17:31 | Electrocardiograph Report ---
[address] [address] Test Date: 2019-04-05 Pat Name: Mercy Franks Department: [id number] Room: [facility] Gender: F [employer] Senior [employer]: : 1955 Requested By: Rj Martini Order Number: [id number] Reading MD: Sharmila Tafoya Measurements Intervals [place] Rate: 102 P: 70 MD: 131 QRS: -30 QRSD: 85 T: 99 QT: 361 QTc: 471 Interpretive Statements Sinus tachycardia Probable left atrial enlargement Left axis deviation Abnormal R-wave progression, early transition Nonspecific ST-T abnormalities Electronically Signed On 04-06-2019 17:29:49 EDT by Sharmila Tafoya
[2019-04-06] MEDS: Thiamine (B-1) 100 MG, Folic Acid 1 MG, MVI, adult with vitamin K 10 ML in 0.9 % Sodi... IVPB SCH ×2 (18:55)
--- NOTE | 2019-04-06 19:05 | Event Note ---
Date of Encounter: 04/06/19 Time of Encounter: 11:00 Patient seen and evaluated by nocturnalist earlier this morning and also by myself. Patient presented due to altered mental status. On my exam patient was alert and oriented [address] of the head was negative. Psychiatry has been consulted for recommendations.
[2019-04-06] MEDS ORDERED: *HR* LORazepam 1 MG TABLET PO PRN (19:06)
[2019-04-06] MEDS ORDERED: Potassium Chloride 20 MEQ, Lidocaine 1% 2 ML in D5% in Water 250 ML IVPB ONE (19:54)
[2019-04-06] MEDS ORDERED: *HR* LORazepam 2 MG/ML VIAL IVP PRN ×3 (20:06)
--- NOTE | 2019-04-06 20:08 | Event Note ---
Date of Encounter: 04/06/19 Time of Encounter: 20:08 Patient is a 64-year-old female who is currently hospitalized secondary to benzodiazepine overdose. Rapid response was called to patient's room at 1950. Per nursing, there was a sitter in the room who alerted the nurse the patient was having seizure-like activity while laying in bed. The seizure-like activity lasted for a total of 45 seconds to 1 minute, described as bilateral upper extremity shaking, the patient bit her lip, no loss of bowel or bladder continence. There was note that patient hit her head along the side bed railing. Patient is not anticoagulated other than subcutaneous heparin for DVT prophylaxis. Patient did not fall out of the bed. When I arrived, the patient was awake alert and speaking, no current seizure- like activity, mildly postictal however conversational. POC glucose was 98. Patient is currently on 4 L nasal cannula pulse oxygen of 90% with RR of 28, BP of 174/99, patient's temp is 98.9F. Patient denies history of seizure-like activity. She does not currently take any antiepileptic medications. Patient denies any current chest pain, sob, nausea, abdominal pain or headache. Patient has small cut to the right inferior lip, no trauma to the tongue, no active bleeding, otherwise atraumatic, is clear to auscultation bilaterally, slightly tachycardic at 105, however regular, no abdominal tenderness, she is neurologically intact no focal deficits, cranial nerves II through XII are grossly intact, able to move all 4 extremities without weakness, no numbness and tingling, strength is symmetric to the upper and lower extremities, alert and oriented 3 at this point. I suspect seizure-like activity secondary to benzo withdrawal as well as history of alcoholism, patient is on CIWA protocol already, we will continue this as well as initiate seizure precautions. Attending present, Dr. Siddiqui, spoke with neurology, who does not recommend further antiepileptic medications outside of CIWA/ benzo withrdawal protocol.
[2019-04-06] MEDS: *HR* LORazepam 1 MG TABLET PO SCH ×2 (20:53→23:59)
--- NOTE | 2019-04-07 04:12 | Event Note ---
Date of Encounter: 04/06/19 Time of Encounter: 23:09 Alerted by pts. nurse ELISABETH Brand to come and see the pt. as the pt. was having a difficult time speaking and following commands. Pt. was admitted for AMS and suspected benzodiazepine elevated levels/withdrawal. Nurse reported pt. was talkative previously but now was quiet and appeared to have difficulty understanding questions posed to her. Went to see the pt. w/Dr. Siddiqui. Focused neuro examination was unremarkable, however pt. was slow to respond to questions. Pt. appeared confused and began laughing during examination. Benzodiazepine level in urine tox screen high yesterday. Stat CT of the head/brain w/o contrast ordered which showed atrophy and mild small vessel ischemic disease. No acute intracranial hemorrhage, mass effect, or midline shift. No abnormal extra-axial fluid collection. There is no evidence of hydrocephalus. Will monitor closely overnight. Nurse instructed to continue monitoring pt. very closely and alert Dr. Siddiqui or myself of any adverse changes. Sitter in place.
[2019-04-07] MEDS: *HR* Heparin 5,000 UNIT/ML VIAL SQ SCH ×3 (04:38→21:47)
[2019-04-07] MEDS: *HR* LORazepam 1 MG TABLET PO SCH ×4 (08:21→21:47)
--- NOTE | 2019-04-07 11:09 | Internal Med Progress Note ---
Hospitalist Progress Note - Encounter Date of Encounter: 04/07/19 Time of Encounter: 11:00 - Subjective Interval History: Patient is a 64-year-old female brought in by family due to concerns for confusion. Psychiatry consulted and suspects benzodiazepine/alcohol abuse/dependence. Recommendations for benzo taper but need recommendations for doses and duration. Patient alert and oriented this morning - Exam Vitals: Temp Pulse Resp BP Pulse Ox 98.0 F 93 16 149/94 95 04/07/19 08:00 04/07/19 08:00 04/07/19 08:00 04/07/19 08:00 04/07/19 08:00 Exam: Gen.: Nonacute distress, alert and oriented 3 ENT: Mucosal membranes moist Respiratory: Lungs are clear to auscultation bilaterally without any wheezing rhonchi or rales Cardiovascular: Normal S1 and S2 regular rate rhythm no murmurs rubs or gallops Abdomen: Soft, nontender and nondistended with positive bowel sounds Extremities: No lower extremity edema Skin: Normal color - Assessment and Plan (1) Altered mental status Current Visit: Yes Status: Acute Assessment and Plan: Patient brought in by family due to concerns for confusion. Patient alert and oriented this morning Psychiatry consulted and suspects benzodiazepine/alcohol abuse/dependence. Recommendations for benzo taper but need recommendations for doses and duration. (2) Alcohol use Current Visit: Yes Status: Acute Assessment and Plan: Patient reports drinking half a bottle of Justo daily. Continue CIWA protocol DVT Prophylaxis: Heparin subcutaneous - Time Spent with Patient Total time spent is greater than 50% in coordination of care (as documented) at patient's floor/unit and/or counseling patient: Internal Medicine: Result - Labs CBC & Chem 7: 04/06/19 01:31 04/06/19 01:31 - ABG Interpretation ABG results: PT/INR, D-dimer PT 11.3 Seconds (9.4-12.1) 04/05/19 20:25 - Impressions Impressions Head CT 04/06/19 23:18 IMPRESSION: Atrophy and mild small vessel ischemic disease. D/ / Raffy Cartagena MD / Raffy Cartagena MD Interpreting Provider: Raffy Cartagena MD Consult Discharge Plan - Plan Referrals: NONE,PCP [Primary Care Provider] - (1) Altered mental status Qualifiers: Altered mental status type: delirium Qualified Code(s): R41.0 - Disorientation, unspecified
[2019-04-07] MEDS: Nicotine 14 MG PATCH.TD24 TD SCH (16:34)
[2019-04-07] MEDS: Thiamine (B-1) 100 MG, Folic Acid 1 MG, MVI, adult with vitamin K 10 ML in 0.9 % Sodi... IVPB SCH (17:03)
[2019-04-07] MEDS ORDERED: *HR* LORazepam 1 MG TABLET PO SCH (20:30)
[2019-04-07] MEDS: Gabapentin 300 MG CAPSULE PO SCH (21:47)
[2019-04-07] MEDS: FLUoxetine HCl Oral Soln 20 MG/5 ML UDC PO SCH (21:47)
[2019-04-08] MEDS: *HR* Heparin 5,000 UNIT/ML VIAL SQ SCH ×2 (07:42→14:21)
[2019-04-08] MEDS: Nicotine 14 MG PATCH.TD24 TD SCH (10:03)
[2019-04-08] MEDS: *HR* LORazepam 1 MG TABLET PO SCH ×2 (10:03→14:21)
[2019-04-08] MEDS: Gabapentin 300 MG CAPSULE PO SCH ×2 (10:03→14:21)
[2019-04-08] MEDS: FLUoxetine HCl Oral Soln 20 MG/5 ML UDC PO SCH (10:04)
[2019-04-08 10:29] LABS: Basophils # 0.1 K/mcL (0.0-0.2); Basophils % 0.9 %; Eosinophils # 0.1 K/mcL (0.0-0.6); Eosinophils % 0.7 %; Hematocrit 45.5 % (35.3-44.9); Immature Granulocytes % 0.6 % (0-4); Lymphocytes # 1.8 K/mcL (0.6-4.6); Mean Corpuscular HGB Conc 33.4 g/dL (31.6-35.5); Mean Corpuscular Hemoglobin 29.1 pg (28.0-33.3); Mean Corpuscular Volume 87.2 fL (83.0-100.0); Mean Platelet Volume 9.4 fL (9.4-12.4); Monocytes # 0.5 K/mcL (0.0-1.3); Monocytes % 7.8 %; Neutrophils # 4.4 K/mcL (1.6-8.9); Platelet Count 285 K/mcL (140-400); Red Blood Count 5.22 M/mcL (3.82-4.97); Red Cell Distribution Width 16.3 % (11.5-14.5)
[2019-04-08 10:40] LABS: Hemoglobin 15.2 g/dL (11.5-15.4)
[2019-04-08 10:49] LABS: BUN/Creatinine Ratio 11 (6-26); Blood Urea Nitrogen 7 mg/dL (8-23); Calcium 9.3 mg/dL (8.6-10.3); Carbon Dioxide 26 mEq/L (23-29); Chloride 110 mEq/L (98-107); Glucose 150 mg/dL (70-105); Osmolality,Calculated 277 (280-300); Sodium 133 mEq/L (136-145); eGFR For Non-African Americans > 60 (> 60)
[2019-04-08 10:55] VITALS: BP 129/84
--- NOTE | 2019-04-08 15:15 | Discharge Summary ---
Date of Encounter: 04/08/19 Time of Encounter: 11:00 - Discharge Diagnosis (1) Altered mental status Priority: Primary Status: Acute Qualifiers: Altered mental status type: delirium Qualified Code(s): R41.0 - Disorientation, unspecified (2) Alcohol use Priority: Primary Status: Acute (3) Hypertension Priority: Primary Status: Acute Qualifiers: Qualified Code(s): I10 - Essential (primary) hypertension Hospital course: Patient is a 64-year-old female with past medical history significant for hypertension and with concerns of prescription drug abuse who was brought in by family due to confusion/altered mental status. According to family and patient, the patient is taking at least 6 Xanax per day and mixing with alcohol. Patient's daughter was at bedside who stated that the patient was having increased confusion and changes in behavior over the past 2 weeks. Patient did admit to depression for which she is receiving treatment on an outpatient basis. During patients hospital stay psychiatry was consulted and suspected benzodiazepine/alcohol abuse/dependence. Psychiatry with recommendations for benzodiazepine taper to wean patient off benzodiazepines. She is alert and oriented and safe for discharge. Patient will be discharged with a benzodiazepine taper and to follow-up with her psychiatrist/primary care physician as an outpatient. - Time Spent with Patient Total time spent providing and/or coordinating discharge services: Time spent: Less than 30 minutes - Discharge Medications Prescriptions: New Chlordiazepoxide [Librium] 5 mg PO DAILY 9 Days #36 capsule Continued DiphenhydraMINE [Benadryl] 50 mg PO HS PRN PRN Reason: Sleep Gabapentin [Neurontin] 300 mg PO TID Diclofenac Sodium 4 gm TP QID PRN PRN Reason: Pain FLUoxetine HCl [Prozac] 20 mg PO BID Fluticasone/Vilanterol [Breo Ellipta 200-25 Mcg INH] 1 puff IH DAILY Meloxicam 15 mg PO DAILY Omeprazole [PriLOSEC] 20 mg PO DAILY Tramadol HCl [Ultram] 50 - 100 mg PO Q8H PRN PRN Reason: Pain Potassium Chloride [K-Tab ER] 10 meq PO DAILY Losartan/Hydrochlorothiazide [Losartan-Hctz 50-12.5 mg Tab] 1 tab PO DAILY Cyclobenzaprine HCl 10 mg PO TID PRN PRN Reason: Muscle Spasm Discontinued Zolpidem [Ambien] 10 mg PO HS ALPRAZolam [Xanax 1 MG Tablet] 1 mg PO QID Home Medications: DiphenhydraMINE [Benadryl] 50 mg PO HS PRN 04/05/19 [History] Gabapentin [Neurontin] 300 mg PO TID 04/05/19 [History] Cyclobenzaprine HCl 10 mg PO TID PRN 04/06/19 [History] Diclofenac Sodium 4 gm TP QID PRN 04/06/19 [History] FLUoxetine HCl [Prozac] 20 mg PO BID 04/06/19 [History] Fluticasone/Vilanterol [Breo Ellipta 200-25 Mcg INH] 1 puff IH DAILY 04/06/19 [History] Losartan/Hydrochlorothiazide [Losartan-Hctz 50-12.5 mg Tab] 1 tab PO DAILY 04/06/19 [History] Meloxicam 15 mg PO DAILY 04/06/19 [History] Omeprazole [PriLOSEC] 20 mg PO DAILY 04/06/19 [History] Potassium Chloride [K-Tab ER] 10 meq PO DAILY 04/06/19 [History] Tramadol HCl [Ultram] 50 - 100 mg PO Q8H PRN 04/06/19 [History] Chlordiazepoxide [Librium] 5 mg PO DAILY 9 Days #36 capsule 04/08/19 [Rx] Allergies/Adverse Reactions: Allergy/AdvReac Type Severity Reaction Status Date / Time codeine AdvReac Gastrointestinal Verified 04/06/19 16:50 Upset morphine AdvReac Gastrointestinal Verified 04/06/19 16:50 Upset Date of admission: 04/05/19 22:57 Primary care physician: PCP NONE Consults: 04/05/19 23:37 Consult to Psychiatry [CONS] Routine Consulting Provider: Psychiatry [facility] Reason consult: Altered mental status Other reason and/or additional details: Concern for SI/SA; Depression Call Completed: No 04/06/19 01:12 Consult to Nutrition [CONS] Routine Comment: Consulting Provider: NUTRITION Reason for Dietary Consult: Diet Education Consult to Acid Changer [CONS] Routine Reason for SW Consult: PT FAMILY CONCERNED ABOUT PT LIVING IN A HORDER TYPE SITUATION, - Constitutional Vitals: Temp Pulse Resp BP Pulse Ox 97.9 F 95 15 129/84 93 04/08/19 10:53 04/08/19 10:53 04/08/19 10:53 04/08/19 10:53 04/08/19 10:53 Exam: Gen.: Nonacute distress, alert and oriented 3 - Patient Status Disposition: Home, Self-Care Condition: Undetermined - Discharge Instructions Follow Up With: NONE,PCP [Primary Care Provider] - Additional Instructions: Follow-up appointments: If there is not an appointment listed below, please call your physician and schedule a follow-up appointment. If you have congestive heart failure and your symptoms return, make an appointment with your physician. Medication List: Carry an up to date list of medications you are taking at all time. We have given you an updated medication list including any new medications that you have been prescribed. Please provide that list to your primary provider Symptoms: If your condition changes or you experience any of the following symptoms, notify your physician immediately: Unusual or worsening pain, fever, persistent nausea and vomiting, bleeding, increase in swelling (especially in your legs), sudden weight gain, extreme dizziness, chest pain, increased drainage or redness from a wound or incision. Go to the emergency department if you experience a problem with breathing. Weights: If you have a history of swelling or shortness of breath, weigh yourself daily and notify your physician if you have a weight gain of two or more pounds in one day or 5 or more pounds in a week. If you experience any of the warning signs for stroke: Sudden numbness or weakness of the face, arm or leg; especially on one side of the body, sudden confusion, trouble speaking or understanding, sudden trouble seeing in one or both eyes, sudden trouble walking, dizziness, loss of balance or coordination, sudden sever headache with no cause; Call 911 or go to the emergency room. Stroke is a medical emergency. Some risk factors for stroke: Age, cigarette smoking, diabetes, excessive alcohol consumption, family history, high blood pressure, overweight, physical inactivity, prior stroke, heart attack, diagnosis of carotid artery stenosis or other artery disease. If you smoke, STOP: Smoking or tobacco use significantly increases your risk of heart and lung disease. Your chance of disease greatly increases if you continue to smoke. For more information, call the [place] tobacco quit line for smoking cessation 0-996-HLUO-NOW ( )
== END 2019-04-08 16:00 | disposition home or self-care (01) ==
LOC: 3BNU 19:35 → EMEROOARM 19:35 → SUATTDRO 22:57 → 3BNU 23:38 → 3NENU 23:57
PROVIDERS: ADMIT Internal Medicine; ATTEND Hospitalist

== ENCOUNTER 2021-02-11 06:53 | Observation (INO) ==
[2021-02-11] MEDS ORDERED: Aspirin 325 MG TABLET PO ONE (07:05)
[2021-02-11] MEDS ORDERED: Ondansetron ODT 4 MG TAB.RAPDIS SL ONE (07:07)
[2021-02-11] MEDS ORDERED: *HR* LORazepam 1 MG TABLET PO ONE (07:10)
[2021-02-11 08:11] LABS: Basophils # 0.1 K/mcL (0.0-0.2); Basophils % 0.7 %; Eosinophils % 0.3 %; Hematocrit 47.5 % (35.3-44.9); Hemoglobin 15.9 g/dL (11.5-15.4); Immature Granulocytes % 0.4 % (0-4); Lymphocytes # 2.3 K/mcL (0.6-4.6); Mean Corpuscular HGB Conc 33.5 g/dL (31.6-35.5); Mean Corpuscular Hemoglobin 28.8 pg (28.0-33.3); Mean Corpuscular Volume 85.9 fL (83.0-100.0); Mean Platelet Volume 10.1 fL (9.4-12.4); Monocytes # 0.6 K/mcL (0.0-1.3); Monocytes % 8.1 %; Neutrophils # 4.4 K/mcL (1.6-8.9); Platelet Count 407 K/mcL (140-400); Red Blood Count 5.53 M/mcL (3.82-4.97); Red Cell Distribution Width 17.2 % (11.5-14.5); Segmented Neutrophils % 59.5 %; White Blood Count 7.5 K/mcL (4.3-11.1)
[2021-02-11 08:30] LABS: Acetaminophen < 10 mcg/mL (10-20); Alanine Aminotransferase 10 Units/L (7-52); Albumin 4.2 g/dL (3.5-5.7); Albumin/Globulin Ratio 1.9 (1.1-2.2); Alkaline Phosphatase 84 Units/L (34-104); Aspartate Amino Transferase 14 Units/L (13-39); BUN/Creatinine Ratio 17 (6-26); Bilirubin,Direct 0.2 mg/dL (0.0-0.2); Bilirubin,Indirect 0.4 mg/dL (0.0-1.0); Bilirubin,Total 0.6 mg/dL (0.3-1.0); Blood Urea Nitrogen 12 mg/dL (8-23); Calcium 9.5 mg/dL (8.6-10.3); Carbon Dioxide 23 mEq/L (23-29); Chloride 103 mEq/L (98-107); Cholesterol 184 mg/dL (< 200); Ethanol < 10 mg/dL (Less than 10); Globulin 2.2 g/dL (2.4-3.5); Glucose 93 mg/dL (70-105); HDL Cholesterol 46 mg/dL (40-59); LDL Cholesterol,Calculated 112 mg/dL (< 100); Osmolality,Calculated 289 (280-300); Potassium 3.6 mEq/L (3.5-5.1); Salicylate < 2.5 mg/dL (15.0-30.0); Sodium 140 mEq/L (136-145); Total Protein 6.4 g/dL (6.4-8.9); Triglycerides 131 mg/dL (< 150); eGFR For African Americans > 60 (> 60); eGFR For Non-African Americans > 60 (> 60)
[2021-02-11 09:27] LABS: Estimated Average Glucose 114 mg/dl; Hemoglobin A1C 5.6 %
[2021-02-11 09:54] LABS: Amphetamine Screen,Urine Negative ng/mL (Cutoff=1000); Barbiturate Screen,Urine Negative ng/mL (Cutoff=200); Benzodiazepines Screen,Urine Negative ng/mL (Cutoff=200); Cannabinoid Screen,Urine Negative ng/mL (Cutoff = 50); Cocaine Screen,Urine Negative ng/mL (Cutoff= 300); Opiate Screen,Urine Negative ng/mL (Cutoff=300); Phencyclidine Screen,Urine Negative ng/mL (Cutoff=25)
[2021-02-11 10:12] LABS: Bacteria,Urine Few per hpf (None-Few); Bilirubin,Urine Small (Negative); Blood,Urine Trace (Negative); Clarity,Urine Clear (Clear); Color,Urine Yellow (Yellow); Glucose,Urine (UA) Normal (Normal); Hyaline Casts,Urine Few per lpf (None Seen); Ketones,Urine 100 mg/dL (Negative); Leukocyte Esterase,Urine Trace (Negative); Mucus,Urine Many per lpf (None-Few); Nitrite,Urine Negative (Negative); PH,Urine 5.5 pH Units (5.0-8.0); Protein,Urine 50 mg/dL (Neg-Trace); Specific Gravity,Urine > 1.030 (1.010-1.025); Squamous Epithelial Cell,Urine Moderate per hpf (None-Few)
[2021-02-11] MEDS ORDERED: OLANZapine 5 MG TAB.RAPDIS PO STA (11:22)
[2021-02-11] MEDS ORDERED: Magnesium Sulfate 1 GM/102 ML PIGGYBACK IVPB ONE (15:15)
[2021-02-11 15:37] LABS: Magnesium 1.9 mg/dL (1.6-2.6)
[2021-02-11] MEDS ORDERED: Naloxone 0.4 MG/ML INJ IVP PRN (16:17)
[2021-02-11] MEDS ORDERED: Perflutren Lipid Microsphere 1.3 ML in 0.9 % Sodium Chloride 8.7 ML IVP PRN (17:02)
[2021-02-11] MEDS ORDERED: *HR* Enoxaparin 40 MG/0.4 ML SYRINGE SQ ONE (18:00)
[2021-02-11] MEDS: Melatonin 3 MG TABLET PO SCH (19:51)
[2021-02-11] MEDS: Acetaminophen 325 MG TABLET PO PRN (19:55)
[2021-02-12] MEDS: Nicotine 21 MG PATCH.TD24 TD SCH ×2 (03:52→04:42)
[2021-02-12] MEDS: *HR* Enoxaparin 40 MG/0.4 ML SYRINGE SQ SCH (04:42)
[2021-02-12 06:36] LABS: Basophils # 0.1 K/mcL (0.0-0.2); Basophils % 1.2 %; Eosinophils # 0.1 K/mcL (0.0-0.6); Hematocrit 45.7 % (35.3-44.9); Immature Granulocytes % 0.4 % (0-4); Lymphocytes # 2.8 K/mcL (0.6-4.6); Lymphocytes % 36.2 %; Mean Corpuscular HGB Conc 32.8 g/dL (31.6-35.5); Mean Corpuscular Volume 85.3 fL (83.0-100.0); Mean Platelet Volume 9.1 fL (9.4-12.4); Monocytes # 0.8 K/mcL (0.0-1.3); Monocytes % 10.7 %; Neutrophils # 3.9 K/mcL (1.6-8.9); Platelet Count 342 K/mcL (140-400); Red Blood Count 5.36 M/mcL (3.82-4.97); Red Cell Distribution Width 17.3 % (11.5-14.5); Segmented Neutrophils % 50.5 %; White Blood Count 7.7 K/mcL (4.3-11.1)
[2021-02-12 06:51] LABS: BUN/Creatinine Ratio 26 (6-26); Blood Urea Nitrogen 17 mg/dL (8-23); Calcium 9.2 mg/dL (8.6-10.3); Carbon Dioxide 26 mEq/L (23-29); Chloride 107 mEq/L (98-107); Glucose 108 mg/dL (70-105); Osmolality,Calculated 288 (280-300); Potassium 4.3 mEq/L (3.5-5.1); Sodium 138 mEq/L (136-145); eGFR For African Americans > 60 (> 60); eGFR For Non-African Americans > 60 (> 60)
[2021-02-12] MEDS ORDERED: hydrOXYzine pamoate 25 MG CAPSULE PO PRN (21:14)
[2021-02-12] MEDS: Melatonin 3 MG TABLET PO SCH (21:23)
[2021-02-12] MEDS: Acetaminophen 325 MG TABLET PO PRN (22:40)
[2021-02-13] MEDS: *HR* Enoxaparin 40 MG/0.4 ML SYRINGE SQ SCH (05:05)
[2021-02-13] MEDS: Nicotine 21 MG PATCH.TD24 TD SCH (05:05)
[2021-02-13] MEDS ORDERED: OLANZapine 5 MG TAB.RAPDIS PO SCH (10:15)
[2021-02-13 11:05] VITALS: BP 132/69
[2021-02-13] MEDS ORDERED: traZODone 50 MG TABLET PO SCH (21:00)
== END 2021-02-13 17:27 ==
LOC: 2ANU 06:53 → EMEROOARM 06:53 → SUATTDRO 15:56 → 2ANU 16:46
PROVIDERS: ADMIT Internal Medicine; ATTEND Internal Medicine

== ENCOUNTER 2021-02-13 17:22 | Inpatient (IN) ==
[2021-02-13] MEDS ORDERED: Mag Hydrox/Al Hydrox/Simeth 30 ML UDC PO PRN (17:38)
[2021-02-13] MEDS ORDERED: haloperidoL 5 MG TABLET PO PRN (17:38)
[2021-02-13] MEDS ORDERED: *HR* LORazepam 1 MG TABLET PO PRN (17:38)
[2021-02-13] MEDS ORDERED: *HR* LORazepam 2 MG/ML VIAL IM PRN (17:38)
[2021-02-13] MEDS ORDERED: MOM Conc 10 ML UD.LIQ PO PRN (17:38)
[2021-02-13] MEDS ORDERED: Haloperidol Lactate 5 MG/ML VIAL IM PRN (17:38)
[2021-02-13] MEDS: traZODone 50 MG TABLET PO PRN (20:12)
[2021-02-13] MEDS: hydrOXYzine pamoate 25 MG CAPSULE PO PRN (20:12)
[2021-02-13] MEDS: rOPINIRole 1 MG TABLET PO SCH (22:16)
[2021-02-13] MEDS: OLANZapine 5 MG TAB.RAPDIS PO SCH (22:16)
[2021-02-14] MEDS: OLANZapine 5 MG TAB.RAPDIS PO SCH ×2 (08:34→20:40)
[2021-02-14] MEDS: Nicotine 21 MG PATCH.TD24 TD SCH (12:54)
[2021-02-14] MEDS: hydrOXYzine pamoate 25 MG CAPSULE PO PRN ×2 (12:59→20:43)
[2021-02-14] MEDS: Acetaminophen 325 MG TABLET PO PRN ×2 (12:59→20:43)
[2021-02-14] MEDS: rOPINIRole 1 MG TABLET PO SCH (20:40)
[2021-02-14] MEDS: Mirtazapine 15 MG TABLET PO SCH (20:41)
[2021-02-14] MEDS: traZODone 50 MG TABLET PO SCH (20:41)
[2021-02-15] MEDS: OLANZapine 5 MG TAB.RAPDIS PO SCH (09:01)
[2021-02-15] MEDS: Nicotine 21 MG PATCH.TD24 TD SCH (09:01)
[2021-02-15] MEDS: Acetaminophen 325 MG TABLET PO PRN ×2 (11:44→20:11)
[2021-02-15] MEDS: hydrOXYzine pamoate 25 MG CAPSULE PO PRN (20:11)
[2021-02-15] MEDS: rOPINIRole 1 MG TABLET PO SCH (20:11)
[2021-02-15] MEDS: Mirtazapine 15 MG TABLET PO SCH (20:12)
[2021-02-15] MEDS: traZODone 50 MG TABLET PO SCH (20:12)
[2021-02-15] MEDS ORDERED: OLANZapine 5 MG TAB.RAPDIS PO SCH (21:00)
[2021-02-15] MEDS ORDERED: Melatonin 3 MG TABLET PO SCH (21:00)
[2021-02-15] MEDS: traZODone 50 MG TABLET PO PRN (22:19)
[2021-02-16] MEDS: Nicotine 21 MG PATCH.TD24 TD SCH (08:31)
[2021-02-16] MEDS ORDERED: OLANZapine 5 MG TAB.RAPDIS PO SCH (09:00)
[2021-02-16 09:02] VITALS: BP 128/93
== END 2021-02-16 12:10 | disposition home or self-care (01) | DRG 885 ==
LOC: 1ANU 17:22
PROVIDERS: ADMIT Psychiatry & Neurology Psychiatry; ATTEND Psychiatry & Neurology Psychiatry